=== PATIENT | male | born 1995 | race Caucasian/White ===

== ENCOUNTER 2016-11-05 16:40 | Emergency (ER) | payer OTHER, MEDICAID ==
[2016-11-05 16:42] VITALS: BP 147/92; PULSE 95; RESP 18; TEMP 98.3; O2SAT 99
--- NOTE | 2016-11-05 17:47 | PD ---
HPI Chief Complaint: Fall Time Seen by Provider: 17:47 Travel History International Travel<30 days: No Contact w/Intl Traveler<30days: No Traveled to known affect area: No History of Present Illness HPI 21-year-old male presents to emergency Department with complaint of right foot pain after tripping over a curb in a parking lot. Denies hitting his head or loss of consciousness. Denies neck pain or back pain. Denies chest pain, shortness breath or abdominal pain, nausea, vomiting. Denies paresthesias, loss of sensation, decreased range of motion, decreased strength to the affected extremity. Has been ambulatory on the affected extremity. Denies fever, vomiting. Reports abrasions to his toes. Reports being up-to-date on his tetanus vaccination. Has iced and elevated the extremity for symptom management. Has not taken any other medications or tried any other treatments to relieve his symptoms. No known allergies. Has no other medical complaints. No other modifying factors or associated signs and symptoms. PFSH Past Medical History Hx Anticoagulant Therapy: No ADD: Yes ADHD: Yes (ADHD) Cancer: No Cardiovascular Problems: No Chemotherapy: No Cerebrovascular Accident: No Developmental Delay: Yes (ASPERGERS) Diabetes: No Diminished Hearing: No Headaches: Yes (occasional headaches) Psychiatric: Yes (asbergers and adhd) Respiratory: No Immunizations Current: Yes Migraines: No Seizures: Yes (past hx of seizures (not known for sure)) Thyroid Disease: No Ulcer: No Past Surgical History Appendectomy: No Section: No Cholecystectomy: No Hysterectomy: No Other Surgery: No Social History Alcohol Use: Yes (rare) Tobacco Use: No Substance Use: No Allergies-Medications (Allergen,Severity, Reaction): Coded Allergies: No Known Allergies (Verified , 04/27/16) Reported Meds & Prescriptions Reported Meds & Active Scripts Active Ibuprofen 800 Mg Tab 800 Mg PO Q6HR PRN Keflex (Cephalexin) 500 Mg Cap 500 Mg PO Q6H 10 Days Bactrim DS (Sulfamethoxazole-Trimethoprim) 800-160 Mg Tab 1 Tab PO BID 10 Days Review of Systems Except as stated in HPI: all other systems reviewed are Neg Physical Exam Narrative GENERAL: Well-nourished, well-developed male patient, in no acute distress SKIN: Warm and dry. HEAD: Atraumatic. Normocephalic. EYES: Pupils equal and round. No scleral icterus. No injection or drainage. ENT: Mucosa pink and moist. Airway patent. NECK: Trachea midline. CARDIOVASCULAR: Regular rate. RESPIRATORY: No accessory muscle use. GASTROINTESTINAL: Obese. MUSCULOSKELETAL: Right foot is edematous with tenderness on palpation to the dorsal aspect cycle no obvious deformity; sensory intact and equal and 2+ pedal pulse; abrasion noted to great toe with surrounding erythema and warmth to touch that may be consistent with possible cellulitis. Right lower extremity supple and nontender 2+ pedal pulses and sensory intact. No obvious deformities. No clubbing. No cyanosis. No edema. NEUROLOGICAL: Awake and alert. Oriented 3. No obvious cranial nerve deficits. Motor grossly within normal limits. Normal speech. PSYCHIATRIC: Appropriate mood and affect; insight and judgment normal. Data Data Last Documented VS Vital Signs Date Time Temp Pulse Resp B/P Pulse Ox O2 Delivery O2 Flow Rate FiO2 11/05/16 16:42 98.3 95 18 147/92 99 Orders Foot, Complete ([id number]) (11/05/16 17:43) Ice/Cold Pack (11/05/16 17:49) Ibuprofen (Motrin) (11/05/16 18:00) Crutches (11/05/16 18:12) MDM Medical Decision Making Medical Screen Exam Complete: Yes Emergency Medical Condition: Yes Medical Record Reviewed: Yes Differential Diagnosis Abrasion, wound infection, cellulitis, foot fracture, foot sprain Narrative Course 21-year-old male with right foot injury, abrasion to the great toe and possible cellulitis after a mechanical fall yesterday. He denies hitting his head or loss of consciousness. Denies neck pain or back pain. I will treat the patient with antibiotics for suspected cellulitis to the right foot. Patient is up-to-date on his tetanus vaccination. Ibuprofen, ice pack, right foot x- ray ordered. Crutches ordered. 1841: R foot xray concludes: Last 24 hours Impressions Foot X-Ray 11/05/16 2253 Signed Impressions: Service Date/Time: Saturday, November 05, 2016 17:56 - CONCLUSION: Prominent diffuse soft tissue swelling without bony fracture seen. Duy Barrett MD Crutches and cyril bandage provided for support. Bactrim, Keflex, ibuprofen prescribed for home. Patient verbalizes understanding and agreement with treatment plan. Patient is medically cleared and stable for discharge. Discussed reasons to return to the emergency department. Instructed patient to follow up with primary care provider. Patient agrees with treatment plan. The patients vital signs are stable and the patient is stable for outpatient follow- up and treatment. Patient discharged home, stable and in no acute distress. Diagnosis Primary Impression: Right foot sprain Qualified Code: S93.601A - Right foot sprain, initial encounter Additional Impressions: Cellulitis of right foot Abrasion foot/toe Referrals: Primary Care Physician Patient Instructions: Acute Wound Care (ED), Cellulitis (ED), General Instructions Departure Forms: Tests/Procedures, Work Release Enter return to work date: Nov 13, 2016 Additional Instructions: Tylenol or ibuprofen as directed and as needed for pain and inflammation Rest, ice, compress, and elevate extremity to decrease pain and inflammation Ankle Brace for support Splint for support; do not remove splint until cleared Crutches for support Avoid aggravating activity; increase activity as tolerated Follow-up with primary care provider Return to the emergency department immediately with worsening of symptoms Med/Other Pt SpecificInfo: Prescription(s) given Scripts Ibuprofen 800 Mg [id number] Mg PO Q6HR PRN (PAIN) #30 TAB Ref 0 Prov:Shruthi Ferro 11/05/16 Cephalexin (Keflex)500 Mg [id number] Mg PO Q6H 10 Days Ref 0 Prov:Shruthi Ferro 11/05/16 Sulfamethoxazole-Trimethoprim (Bactrim DS)800-160 Mg Tab1 Tab PO BID 10 Days Ref 0 Prov:Shruthi Ferro 11/05/16 Disposition: 01 DISCHARGE HOME Condition: Stable Shruthi Ferro Nov 05, 2016 17:47
[2016-11-05] MEDS ORDERED: IBUPROFEN 800 MG TAB PO ONE (18:00)
--- NOTE | 2016-11-05 18:29 | RADRPT ---
EXAM DATE/TIME: 11/05/2016 17:56 [facility] COMPARISON: No previous studies available for comparison. INDICATIONS : Pain and swelling right foot, fell MEDICAL HISTORY : None. SURGICAL HISTORY : None. ENCOUNTER: Initial ACUITY: 2 days PAIN SCORE: 6/10 LOCATION: Right Foot FINDINGS: Three view examination of the right foot demonstrates diffuse soft tissue swelling. No fracture is se en. The bones and joints appear normally aligned. There are multiple small 3 mm linear densities seen overlying the soft tissues on several images. The se appear to not align suggesting these are likely artifact. CONCLUSION: Prominent diffuse soft tissue swelling without bony fracture seen. Duy Barrett MD on November 05, 2016 at 18:20 Board Certified Radiologist. This report was verified electronically.
[2016-11-05] MEDS ORDERED: IBUP800T23 PO (18:43)
[2016-11-05] MEDS ORDERED: BACT800T5 PO (18:43)
[2016-11-05] MEDS ORDERED: CEPH-460 PO (18:43)
== END 2016-11-05 19:04 | disposition home or self-care (01) ==
LOC: NEPD 16:40
DX: S93.601A Unspecified sprain of right foot, initial encounter (principal); L03.115 Cellulitis of right lower limb; S90.411A Abrasion, right great toe, initial encounter; Z86.59 Personal history of other mental and behavioral disorders; Z86.69 Personal history of other diseases of the nervous system and sense organs; W01.0XXA Fall on same level from slipping, tripping and stumbling without subsequent striking against object, initial encounter; Y92.481 Parking lot as the place of occurrence of the external cause
CPT/HCPCS: 73630; 99284; E0113